=== PATIENT | female | born 1955 | race Caucasian/White ===

== ENCOUNTER 2016-07-12 16:16 | Emergency (ER) | payer MEDICARE ==
[2016-07-12] MEDS ORDERED: SODIUM CHLORIDE 0.9% 1,000 ML ONE (19:02)
[2016-07-12 19:05] LABS: SPECIFIC GRAVITY 1.025 (1.001-1.030); URINE BILIRUBIN NEGATIVE (NEGATIVE); URINE BLOOD NEGATIVE (NEGATIVE); URINE GLUCOSE (UA) NEGATIVE (NEGATIVE); URINE LEUKOCYTE ESTERASE NEGATIVE (NEGATIVE); URINE NITRITE NEGATIVE (NEGATIVE); URINE PROTEIN NEGATIVE (NEGATIVE); URINE UROBILINOGEN NORMAL (0-1 mg/dl)
[2016-07-12 19:06] LABS: ABSOLUTE NEUTROPHIL COUNT 3.9 K/mm3 (1.8-7.7); BASO # 0.1 K/mm3 (0.0-0.2); EOS # 0.2 (0.0-0.5); EOS % 2.4 % (0.9-2.9); HEMATOCRIT 38.2 % (37.0-47.0); HEMOGLOBIN 12.3 gm/l (12.0-16.0); IMM NEUT% 0.3 % (0-1); LYMPH # 3.2 (1.0-4.8); LYMPH % 40.7 % (15-45); MEAN CORPUSCULAR HEMOGLOBIN 29.3 pg (27.0-31.0); MEAN CORPUSCULAR HGB CONC 32.2 g/dl (33.0-37.0); MONO # 0.5 (0.0-0.8); MONO % 6.8 % (4-12); NEUT % 48.8 % (43-75); PLATELET COUNT 193 K/mm3 (130-400); RED CELL DISTRIBUTION WIDTH 15.6 % (11.5-14.5)
[2016-07-12 19:08] LABS: URINE APPEARANCE CLEAR; URINE COLOR YELLOW
[2016-07-12 19:27] LABS: ALB/GLOB RATIO 1.5 (>1.0); ALBUMIN 4.1 gm/dL (3.5-5.7); CALCIUM 9.4 mg/dL (8.6-10.3); MAGNESIUM 1.3 mg/dL (1.9-2.7)
[2016-07-12 19:28] LABS: TROPONIN I < 0.01 ng/ml (0.0-0.06)
[2016-07-12 19:32] LABS: CKMB ISOENZYME 4.9 ng/ml (0.6-6.3)
[2016-07-12 19:38] LABS: THYROID STIMULATING HORMONE 1.28 uIU/ml (0.34-5.60)
[2016-07-13] MEDS ORDERED: DIPHENHYDRAMINE HCL 50 MG CAPSULE ONE (01:21)
[2016-07-13] MEDS ORDERED: IBUPROFEN 800 MG TABLET ONE (01:21)
--- NOTE | 2016-07-13 08:14 | RAD ---
History: Weakness with chest pain. Comparison: 10/16/2015. Technique: 2 views Findings: 2 views of the chest demonstrate an indwelling dual-lead pacing device. There is evidence of hardware fixation of the lower cervical spine. The heart size is stable. There is no gross consolidation, effusion or pneumothorax visualized. The hilar and mediastinal structures are intact. Impression: 1. A stable appearance of the dual-lead pacing device. 2. No active intrathoracic process.
== END 2016-07-12 21:38 | disposition home or self-care (01) ==
LOC: ED 16:16
DX: R53.1 Weakness (principal); E78.5 Hyperlipidemia, unspecified; E11.9 Type 2 diabetes mellitus without complications; K21.9 Gastro-esophageal reflux disease without esophagitis; I83.90 Asymptomatic varicose veins of unspecified lower extremity; Z87.442 Personal history of urinary calculi; Z95.0 Presence of cardiac pacemaker; K76.0 Fatty (change of) liver, not elsewhere classified; F17.210 Nicotine dependence, cigarettes, uncomplicated; Z79.899 Other long term (current) drug therapy; Z79.82 Long term (current) use of aspirin; Z79.891 Long term (current) use of opiate analgesic; Z88.1 Allergy status to other antibiotic agents; Z88.8 Allergy status to other drugs, medicaments and biological substances
CPT/HCPCS: 85025; 82550; 82553; 80053; 83735; 81003; 84443; 84484; 71020; 99284; 93005; 99283; J7030